=== PATIENT | male | born 1940 ===

== ENCOUNTER 2018-08-13 07:37 | Emergency (ER) | payer BC ==
[2018-08-13 07:45] VITALS: BP 128/78
--- NOTE | 2018-08-13 08:41 | UC ---
HPI Febrile Illness - HPI Summary HPI Summary: 77-year-old man presents with 3-1/2 weeks of rash to the right face, cough, occasional difficulty with breathing, occasional right-sided chest discomfort. He states that this morning he had chills and joint aches. He took 2 Tylenol for this. He has completed a round of Zithromax from the urgent care which upset his stomach and now he is on doxycycline. He states that this also causes GI discomfort for him. He has had some minor runny nose and congestion. His cough is nonproductive and occasional. He has no right-sided chest discomfort at this time. - History of Current Complaint Chief Complaint: UCRespiratory Time Seen by Provider: 08/13/18 07:52 Hx Obtained From: Patient Pain Intensity: 0 - Allergy/Home Medications Allergies/Adverse Reactions: Allergies Allergy/AdvReac Type Severity Reaction Status Date / Time azithromycin [From Zithromax] Allergy Nausea Verified 08/13/18 07:47 doxycycline Allergy Nausea Verified 08/13/18 07:47 Home Medications: Home Medications Atenolol TAB* [Tenormin TAB* 25 MG] 25 mg PO DAILY 08/13/18 [History Confirmed 08/13/18] Hydrochlorothiazide TAB* [Hydrodiuril TAB*] 25 mg PO DAILY 08/13/18 [History Confirmed 08/13/18] raNITIdine HCl [Ranitidine HCl] 150 mg PO DAILY 08/13/18 [History Confirmed ] PMH/Surg Hx/FS Hx/Imm Hx Previously Healthy: Yes Respiratory History: Pneumonia - Surgical History Surgical History: Yes Surgery Procedure, Year, and Place: appy - Family History Known Family History: Positive: Non-Contributory - Social History Occupation: Retired Alcohol Use: None Substance Use Type: None Smoking Status (MU): Never Smoked Tobacco Review of Systems All Other Systems Reviewed And Are Negative: Yes Constitutional: Positive: Fever, Chills, Fatigue Skin: Positive: Rash ENT: Positive: Nasal Discharge, Sinus Congestion. Negative: Ear Ache, Sinus Pain/Tenderness Respiratory: Positive: Shortness Of Breath, Cough Cardiovascular: Positive: Chest Pain. Negative: Palpitations Gastrointestinal: Positive: Negative Motor: Positive: Negative Musculoskeletal: Positive: Arthralgia Is Patient Immunocompromised?: No Physical Exam Triage Information Reviewed: Yes Appearance: Well-Appearing, No Pain Distress, Well-Nourished Vital Signs: Initial Vital Signs Temp 98 F 08/13/18 07:40 Pulse 72 08/13/18 07:40 Resp 18 08/13/18 07:40 BP 128/78 08/13/18 07:40 Pulse Ox 97 08/13/18 07:40 Eyes: Positive: Conjunctiva Clear ENT: Positive: Nasal congestion, Nasal drainage, TMs normal. Negative: Pharyngeal erythema, Sinus tenderness Neck: Positive: Supple, Other: - Right-sided anterior cervical adenopathy Respiratory: Positive: Chest non-tender, Lungs clear, Normal breath sounds, No respiratory distress Cardiovascular: Positive: RRR, No Murmur Abdomen Description: Positive: Nontender, No Organomegaly, Soft Musculoskeletal: Positive: Strength Intact, ROM Intact, No Edema Neurological: Positive: Alert. Negative: Fatigued Psychological Exam: Normal Skin: Positive: Rashes - Right-sided facial/jaw line cluster of crusted apparently prior vesicular lesions. This extends to the corner of the mouth. Diagnostics - Radiology chest x-ray Radiology Interpretation Completed By: Radiologist - No acute infiltrate Course/Dx - Course Course Of Treatment: Patient appears to have had upper respiratory infection now complicated by shingles virus causing soreness in his jawline. He probably feels fatigue associated with this. He has some adjacent adenopathy. X-ray of the chest is negative. He is encouraged to follow-up with his primary care physician and is given local referral as he goes to the [facility]. Start Valtrex , prednisone and albuterol for his occasional shortness of breath. - Febrile Illness Differential Diagnoses: Abscess, Fever of Unknown Origin, Neoplasm, Pneumonia - Diagnoses Provider Diagnosis: Shingles, Dyspnea, Upper respiratory infection Discharge - Sign-Out/Discharge Documenting (check all that apply): Patient Departure All imaging exams completed and their final reports reviewed: Yes - Discharge Plan Condition: Improved Disposition: HOME Prescriptions: Albuterol HFA INHALER* [Ventolin HFA Inhaler*] 2 puff INH Q4H PRN #1 mdi PRN Reason: Sob/Wheezing Famotidine TAB* [Pepcid 20 MG TAB*] 20 mg PO BID #20 tab predniSONE TAB* [Deltasone TAB*] 50 mg PO DAILY #4 tab ValACYclovir (*) [Valtrex 1 GM(*)] 1 gm PO TID #21 tab Patient Education Materials: Shingles (ED) Referrals: [facility] [[facility]] Logan Nicholson MD [Primary Care Provider] - Additional Instructions: [facility] Her primary care referral has also been given. Return with high fevers, difficulty breathing, worse, new symptoms or other concerns. Discontinue doxycycline. Call about the Shingrex vaccine. - Billing Disposition and Condition Condition: IMPROVED Disposition: Home - Attestation Statements Document Initiated by Johan: No
== END 2018-08-13 08:43 | disposition home or self-care (01) ==
LOC: UCEAST 07:37
DX: B02.9 Zoster without complications (principal); R06.00 Dyspnea, unspecified; J06.9 Acute upper respiratory infection, unspecified; Z88.1 Allergy status to other antibiotic agents
CPT/HCPCS: 71046; 99202; G0463